=== PATIENT | female | born 1955 | race Caucasian/White ===

== ENCOUNTER 2021-12-29 05:04 | Observation (INO) ==
--- NOTE | 2021-12-24 08:25 | Anesthesiology Consultation ---
Date of Service December 24, 2021 Assessment & Plan (1) Encounter for pre-operative examination: - Abnormal preop testing: Hypokalemia (K 3.0) on preop labs and CXR with a few bibasilar linear densities (per report: these are nonspecific but favor subsegmental atelectasis. A pneumonia could also have a similar appearance in the appropriate clinical setting). Message sent to PCP. Awaiting surgeon-ordered PCP preop evaluation and response to hypokalemia/abnormal CXR (Dr. Cortez/Maxine; scheduled 12/25). - COVID screening: Per assessment on 12/24: No known COVID-19 positive contacts or current COVID-19 related symptoms (previous N/V resolved with decreasing opioid/pain medication). Travel screen negative x 2 weeks. Surgeon arranging preop COVID testing (scheduled 12/27; CARINA Burns). Awaiting results. Chart Review Chart Review: Patient seen in Pre Admission Testing Teaching & Discussion Pre-Anesthesia Teaching/Discussion Notes: Instructed NPO after midnight before surgery,except medications with 15 cc of water. Medication instructions provided according to the PAT guidelines. History Surgery Operation Date: 12/29/21 07:30 Proposed Procedures p Left Total Shoulder Arthroplasty Reverse - Rajinder Socrates Tapia MD Height/Weight Height: 5 ft Weight: 66.7 kg Allergies Allergy/AdvReac Type Severity Reaction Status Date / Time amoxicillin [From Augmentin] AdvReac N/V Verified 12/23/21 15:51 clavulanic acid AdvReac N/V Verified 12/23/21 15:51 [From Augmentin] Medications Home Medications Medication Instructions Recorded Confirmed Last Taken amlodipine 10 mg tablet 10 mg PO QAM 06/03/18 12/24/21 06/02/18 hydrochlorothiazide 25 mg tablet 25 mg PO QAM 06/03/18 12/24/21 06/02/18 oxycodone 5 mg tablet 5 - 10 mg PO Q6H PRN pain #20 tabs 12/20/21 12/24/21 Unknown acetaminophen 500 mg tablet 500 mg PO Q6H PRN Pain 12/24/21 12/24/21 Unknown (Tylenol Extra Strength) aspirin 81 mg tablet,delayed 81 mg PO QAM 12/24/21 12/24/21 Unknown release (Catie Low Dose Aspirin) rosuvastatin 5 mg tablet 5 mg PO QAM 12/24/21 12/24/21 Unknown Past Medical History Medical History Dyslipidemia Hearing deficit Rt DONAHUE Hypertension Urinary leakage Exercise / Class Metabolic Activity III < 4 Walking/Shop/Light housework Past Family History Family History Other No family history of adverse response to anesthesia Past Surgical History Surgical History History of benign breast biopsy History of colonoscopy History of oral surgery History of rectal fissure s/p surgical repair Past Anesthesia History No Hx of Anesthesia Complications and No Family Hx of Anesthesia Complications History of PONV No Hx of PONV and Hx of Motion Sickness Social History Smoking Status: Never smoker Do You Dip or Chew Tobacco: No Smoking End Date: Quit 47 years ago Hx Alcohol Use: No Hx Substance Use: No substance use type: does not use Review of Systems Significant left shoulder pain. Patient denies chest pain, shortness of breath, fever, chills, cough, wheezing, palpitations. Physical Exam Vital Signs VITALS BP 132/73 P 89 TEMP 98.7 SP02 93-94%RA RESP 18 PHYSICAL Full cervical extension range of motion. Full TMJ range of motion. TMD 3 finger breaths Mallampati Score 4 Dentition: partial upper Lungs: clear throughout to auscultation Cardiac: regular rate and rhythm, no murmurs noted Spine: normal Carotid arteries: negative bruit Extremities: no edema Lab Results Anesthesia Preop Results Results Anesthesia Widget: WBC 11.71 K/ul (4.8-10.8) H 12/24/21 Hgb 12.2 g/dl (12.0-16.0) 12/24/21 Hct 35.8 % (34.1-44.9) 12/24/21 Plt 263 K/uL (130-400) 12/24/21 Na 137 mmol/L (136-145) 12/24/21 K 3.0 mmol/L (3.5-5.1) L 12/24/21 Cl 94 mmol/L (98-107) L 12/24/21 CO2 33 mmol/L (21-32) H 12/24/21 BUN 17 mg/dl (6-23) 12/24/21 Creat 0.82 mg/dl (0.6-1.2) 12/24/21 Glucose Level 191 mg/dl (70-99(Fasting)) H 12/24/21 PT 10.6 Seconds (9.0-12.0) 12/24/21 PTT 24.5 Seconds (21.0-31.0) 12/24/21 INR 1.0 (0.9-1.1) 12/24/21 Blood Type A Positive 12/24/21 Antibody Screen NEGATIVE 12/24/21 Testing Laboratory Results Elevated WBC and hypokalemia noted on preop labs > testing forwarded to PCP. Electrocardiogram Date: 12/24/21 Findings: + NSR @ (79) Chest X-Ray Date: 12/24/21 Redemonstration of the displaced and comminuted left humeral head/neck fracture. A few bibasilar linear densities. These are nonspecific but favor subsegmental atelectasis. A pneumonia could also have a similar appearance in the appropriate clinical setting.
--- NOTE | 2021-12-24 08:40 | PAT Medication Instructions ---
Medication Instructions Date of Service December 24, 2021 Home Medications Medication Instructions Recorded oxycodone 5 mg tablet 5 - 10 mg PO Q6H PRN pain #20 tabs 12/20/21 amlodipine 10 mg tablet 10 mg PO DAILY hydrochlorothiazide 25 mg tablet 25 mg PO DAILY oxycodone 5 mg tablet 5 - 10 mg PO Q6H PRN pain acetaminophen 500 mg tablet (Tylenol Extra Strength) 500 mg PO Q6H PRN Pain aspirin 81 mg tablet,delayed release (Catie Low Dose Aspirin) 81 mg PO QAM rosuvastatin 5 mg tablet 5 mg PO QAM ASK your prescriber and surgeon aspirin 81 mg tablet,delayed release (Catie Low Dose Aspirin) 81 mg PO QAM DO NOT take the morning of surgery hydrochlorothiazide 25 mg tablet 25 mg PO DAILY Take morning of surgery With a small sip of water, OTHERWISE NOTHING TO EAT OR DRINK AFTER MIDNIGHT: amlodipine 10 mg tablet 10 mg PO DAILY oxycodone 5 mg tablet 5 - 10 mg PO Q6H PRN pain (if needed) acetaminophen 500 mg tablet (Tylenol Extra Strength) 500 mg PO Q6H PRN Pain (if needed) rosuvastatin 5 mg tablet 5 mg PO QAM Other Notes If you have any questions please call us at [phone] or [phone] or [phone] or [phone]
[2021-12-29] MEDS ORDERED: LR 60ML/HR IV SCH (06:00)
[2021-12-29] MEDS ORDERED: ceFAZolin 1000MG 1,000 MG/7.5 ML SYR IV SCH (06:00)
[2021-12-29] MEDS ORDERED: Scopolamine 1 MG TDSY TD SCH (06:00)
[2021-12-29] MEDS ORDERED: CeleBREX 200 MG CAP PO SCH (06:00)
[2021-12-29] MEDS ORDERED: TRANEXAMIC ACID 1,000 MG **IV Pre-op IV SCH (06:00)
[2021-12-29] MEDS ORDERED: GABAPENTIN 300 MG CAP PO SCH (06:00)
[2021-12-29] MEDS ORDERED: METOCLOPRAMIDE HCL 10 MG TABLET PO SCH (06:00)
[2021-12-29] MEDS ORDERED: LR 15ML/HR IV SCH (06:00)
[2021-12-29] MEDS ORDERED: ROPIVACAINE 0.5% HCL/PF 150 MG, BUPIVACAINE 0.75% MPF 20 ML, EPINEPHrine 0.15 MG, Ketor... INFIL SCH (06:00)
[2021-12-29] MEDS ORDERED: BUPIVACAINE 0.5 % 5 MG/1 ML PF 10ML VIAL ONE (06:25)
[2021-12-29] MEDS ORDERED: LIDOCAINE 1%/EPINEPHRINE 1:100,000 50 ML VIAL ONE (06:42)
[2021-12-29] MEDS ORDERED: BUPIVACAINE 0.5 % 5 MG/1 ML MPF 30ML VIAL ONE (06:42)
[2021-12-29] MEDS ORDERED: DEXAMETHASONE SOD INJ 4 MG/ML VIAL ONE (06:55)
[2021-12-29] MEDS ORDERED: ROCURONIUM BROMIDE 10 MG/ML 5 ML VIAL IV ONE (06:55)
[2021-12-29] MEDS ORDERED: MIDAZOLAM HCL 1 MG/ML 2ML VIAL ONE (06:55)
[2021-12-29] MEDS ORDERED: PROPOFOL IV EMULSION 10 MG/ML 20 ML VIAL IV ONE (06:55)
[2021-12-29] MEDS ORDERED: LIDOCAINE 2% 20 MG/ML 5 ML SYR IV ONE (06:55)
[2021-12-29] MEDS ORDERED: ONDANSETRON INJ 2 MG/ML 2 ML VIAL ONE (06:55)
[2021-12-29] MEDS ORDERED: fentaNYL citrate 100 MCG/2 ML VIAL ONE (06:56)
[2021-12-29] MEDS ORDERED: fentaNYL citrate 100 MCG/2 ML VIAL IV PRN (06:59)
[2021-12-29] MEDS ORDERED: KETOROLAC 30 MG/ML VIAL IV PRN (06:59)
[2021-12-29] MEDS ORDERED: PROMETHAZINE HCL 6.25 MG in SODIUM CHLORIDE 0.9% 50 ML IV PRN (06:59)
[2021-12-29] MEDS ORDERED: ATROPINE SULFATE 0.1 MG/ML 10ML SYR IV PRN (06:59)
[2021-12-29] MEDS ORDERED: ONDANSETRON INJ 2 MG/ML 2 ML VIAL IV PRN ×2 (06:59→12:46)
--- NOTE | 2021-12-29 07:08 | History & Physical Bridge Note ---
Date of Service December 29, 2021 History & Physical Bridge Note I have examined the patient, reviewed the History & Physical and in the interval since the performance of the History & Physical I have noted the following changes of clinical significance: no changes noted Patient is aware of the risks, is asymptomatic, and tested negative for COVID- 19.
[2021-12-29] MEDS ORDERED: LARYING-O-JET KIT (LTA) ONE (08:24)
[2021-12-29] MEDS ORDERED: NEOSTIGMINE METHYLSULFATE 1 MG/ML 10ML VIAL ONE (09:15)
[2021-12-29] MEDS ORDERED: GLYCOPYRROLATE 0.2 MG/ML VIAL ONE (09:15)
[2021-12-29] MEDS ORDERED: PHENYLEPHRINE 100MCG/ML 5ML SYR ONE (09:37)
[2021-12-29] MEDS ORDERED: TRANEXAMIC ACID / 0.7% NACL 1,000 MG/100 ML BAG IV STA (09:44)
--- NOTE | 2021-12-29 11:16 | Post Operative Brief Note ---
Immediate Post Op Note v1 Date of Surgery December 29, 2021 Pre & Post Diagnosis Operation Date: 12/29/21 07:30 Pre-Op Diagnosis: 4-Part Displaced Left Proximal Humerus Fracture Post-Op Diagnosis: 4-Part Displaced Left Proximal Humerus Fracture I identified the patient and participated in the time-out.: Yes Procedure Operation Date: 12/29/21 07:30 Actual Procedures p Left Total Shoulder Arthroplasty Reverse(Left) - Rajinder Tapia MD Surgeon Rajinder Tapia MD Senior Packaging Engineer Jona Moran MD & C MIN Valdovinos Estimated Blood Loss 75 Findings Consistent with Post-Op Diagnosis Fluids 1800 cc Specimens Left humeral Head Anesthesia Type General Regional Complications none
--- NOTE | 2021-12-29 11:19 | Operative Report ---
Post Operative Report Pre & Post Diagnosis Operation Date: 12/29/21 07:30 Pre-Op Diagnosis: 4-Part Displaced Left Proximal Humerus Fracture Post-Op Diagnosis: 4-Part Displaced Left Proximal Humerus Fracture I identified the patient and participated in the time-out.: Yes Procedure Operation Date: 12/29/21 07:30 Actual Procedures p Left Reverse Total Shoulder Arthroplasty (Left) - Rajinder Tapia MD Surgeon Rajinder Tapia MD Waiter Jona Moran MD & Cosme Valdovinos PA-C Estimated Blood Loss 75 Findings See Below Comminuted displaced 4-part proximal humerus fracture. Humeral Head was in multiple pieces. Shoulder ROM Pre-op: FF 90 deg; Abd 90 deg with significant crepitus; ER 0 deg; IR 0 deg Shoulder ROM Post-op: FF 150 deg; Abd 150 deg; ER 40 deg; IR 20 deg Fluids 1800 cc Specimens Left humeral head Anesthesia Type General Regional Complications none Indications Patient is a 66-year-old female who fell sustaining a comminuted 4-part proximal left humeral fracture, with pain and decreased mobility. I recommended that she undergo a left shoulder Reverse TSA. The patient understands the risks of the operation including bleeding, infection, re-operation, damage to nerves and arteries, continued shoulder pain, shoulder stiffness, infection, and/or loosening of the components which may require additional surgery. The patient also understands the risks of heart attack, stroke, pulmonary embolus, and . The patient wished to proceed and the consent form was signed. Description of Procedure IMPLANTS: Arthrex 1) Humeral Stem 5 Univers Reverse Stem, with size 36 Left Offset Suture Cup at 135. 2) Humeral Liner 36, + 3 mm 33. 3) Glenoid Modular Baseplate 24 mm + 2Laterlized & Central Screw 10 x 20 mm. 4) Glenosphere 33 mm + 4 Lateralized / 24. 5) Glenoid Locking screw 5.5 x 20 & 28 mm. PROCEDURE: The patient was taken to the Operating Room and placed in the beach-chair position after administration of an interscalene block and general anesthesia. 1 g of intravenous Ancef was administered. TXA was given pre-op and intra-op. The left shoulder was then prepped and draped in the standard sterile fashion. Sequential compression devices were placed in the legs. The patient was identified and a multidisciplinary time-out identified the left shoulder as the correct shoulder and operative limb. First, the coracoid, acromion, clavicle, and planned deltopectoral incision were marked and then anesthetized with a 50:50 mixture of 1% lidocaine with epinephrine and 0.5% Marcaine. Sharp dissection was carried down to the deltopectoral interval. The cephalic vein was identified and protected laterally as was the deltoid. The deltopectoral interval was dissected to expose the clavipectoral fascia which was then incised. Blunt dissect was used to separate the deltoid from the humeral head fragments and rotator cuff. A self-retaining shoulder retractor was placed beneath the conjoined tendon and deltoid muscle, exposing the subscapularis tendon. The superior 1cm of the Pec major was released. The biceps tendon was identified in its groove and had degeneration it was tenodesed to the Pec major tendon with #1 Vicryl. The biceps tendon was unroofed from its groove, and the rotator interval was split to the base of the coracoid and the biceps was released from the glenoid. The subscapularis was freed of any adhesions and tagged. The fracture was used to gain access to the joint. The lesser tuberosity and 2 parts of the greater Tuberosity (Supraspinatus and Infraspinatus & Teres Minor) were tagged with a #1 Vicryl. The hematoma was removed with irrigation, suction, finger dissection, and rongeur. The humeral head fragments were removed. Our attention was drawn to the glenoid. The humerus was retracted and displaced posteriorly. The labrum was circumferentially removed as was the anterior capsule, which was carefully dissected free from the subscapularis tendon. The glenoid was exposed with 90 degree retractor superiorly, Ricardo retractor anteriorly, and Batman/Derra retractor posteriorly. The glenoid was prepped with curettes to remove any remaining cartilage. Using the specific VIP patient specific glenoid aiming guide for a 24 mm baseplate was used to place the 2.8 mm guide wire. The glenoid surface was prepped for the baseplate with the glenoid reamers (peripheral and inferior offset after the baseplate was placed). The mod ular central screw hole was prepped with cannulated 10 mm drill, then tapped to depth of 20 mm. The baseplate with central screw was screwed into place flush to the glenoid. The inferior screw hole was drilled first followed by the superior screw and a locking screws were placed. The 33 mm trial glenosphere looked excellent and the 33 mm glenosphere implant was inserted onto the baseplate and locked into place in the standard fashion. Next, the humeral shaft was dislocated by adducting, extending, and externally rotation. Due to the fracture the capsule was not attached to the humeral shaft. The IM reamer was placed by hand up to a # 6. Due to the comminution the resection guide and reamer were not needed. The humeral broached to a 5 in the humeral shaft until excellent fit. The Tuberosities had sutures placed through them and the shaft for later repair. The 5 stem was impacted into place with excellent purchase was achieved. The humeral trial liner 36, +3 mm was placed. The shoulder was reduced with excellent fit and good stability of 1+ translation anteriorly and posteriorly. The shoulder ROM showed improved motion noted above. The definitive humeral liner was then placed. The tuberosities were repaired by tying the sutures to the shaft, implant, cerclage suture, and sutures to each other. The posterior fragment with the Infraspinatus and Teres Minor was repaired first with good alignment of the fragment to the shaft. Next the Lateral fragment with the Supraspinatus was repaired to the shaft and prostheses. Some bone graft from the humeral head was filled in between the these 2 fragments. The lesser tuberosity was then repaired to the shaft and prostheses. The rotator interval was closed with #2 FiberWire. The prostheses was no longer visible. The ROM and stability was unchanged. The pulsatile lavage was used to copiously irrigate the wound throughout the case. The deltopectoral interval was re-approximated with #1-Vicryl, the s ubcutaneous tissue was closed with 3-0 Vicryl, and the skin was closed with ZipLine and Shield. The wounds were dressed with sterile gauze, and Tegaderm. The patient was then transferred to the PACU in stable condition after application of an abduction sling. POST-OP: The patient will be admitted for observation overnight. Patient will be seen by PT/OT prior to discharge. Pain medicine will be used as needed. The patient was placed in an abduction sling. I attest to the content of the Intraoperative Record and any orders documented therein. Any exceptions are noted below.
--- NOTE | 2021-12-29 11:52 | Operative Report ---
Post Operative Report Pre & Post Diagnosis Operation Date: 12/29/21 07:30 Pre-Op Diagnosis: Other Displaced Fracture of Upper End of Left [place] Post-Op Diagnosis: Other Displaced Fracture of Upper End of Left Jc I identified the patient and participated in the time-out.: Yes Procedure Operation Date: 12/29/21 07:30 Actual Procedures p Left Total Shoulder Arthroplasty Reverse(Left) - Rajinder Tapia MD Surgeon Rajinder. Willie HOLMAN Security Orderly N MD Luisa & C MIN Valdovinos Estimated Blood Loss 75 Findings Consistent with Post-Op Diagnosis Consistent with post op diagnosis. Specimens No specimens Description of Procedure I participated in prepping dressing and assisted Dr. Tapia during the procedure. Please see Dr. Tapia note. I attest to the content of the Intraoperative Record and any orders documented therein. Any exceptions are noted below. Supervising Physician Co-Signing Physician Notes Dr. Tapia
--- NOTE | 2021-12-29 12:06 | Operative Report ---
Post Operative Report Pre & Post Diagnosis Operation Date: 12/29/21 07:30 Pre-Op Diagnosis: Other Displaced Fracture of Upper End of Left [place] Post-Op Diagnosis: Other Displaced Fracture of Upper End of Left Jc I identified the patient and participated in the time-out.: Yes Procedure Operation Date: 12/29/21 07:30 Actual Procedures p Left Total Shoulder Arthroplasty Reverse(Left) - Rajinder Socrates Tapia MD Surgeon D Willie HOLMAN Administrative Asst Jona Moran MD & C MIN Valdovinos Estimated Blood Loss 75 Findings Consistent with Post-Op Diagnosis see operative report Specimens see operative report Drains none Complications none Disposition Accompanied Patient To Recovery: Yes Indications This 66-year-old female presented to the office with complaints of a left proximal humeral fracture. Because of the complexity of the fracture, reverse total shoulder arthroplasty was recommended. Patient elected to proceed. Preoperative imaging was obtained. Description of Procedure Patient was administered a regional block and then taken to the operating room where she was given general anesthesia. She was prepped and draped in the usual sterile fashion. Please see Dr. Tapia's operative report for specifics of the procedure. I was present for the entire case from initial patient positioning through final wound closure. Assistance was provided in tissue retraction, hemostasis, trial implant placement, final implant placement, and final wound closure. Patient was taken to the recovery room in satisfactory condition. I attest to the content of the Intraoperative Record and any orders documented therein. Any exceptions are noted below.
--- NOTE | 2021-12-29 12:35 | Anesthesiology Progress Note ---
Date of Service December 29, 2021 Anesthesia Post Procedure Vital Signs Vital Signs: Temp Pulse Pulse Resp BP Pulse Ox O2 Del Method 12/29/21 12:25 36.3 C L 82 17 126/80 93 Room Air 12/29/21 12:15 69 15 130/71 97 Oxymask 12/29/21 12:05 69 16 124/70 96 Oxymask 12/29/21 11:55 73 15 129/75 95 Oxymask 12/29/21 11:48 36.0 C L 86 14 116/75 96 Oxymask 12/29/21 05:44 36.8 C 82 20 151/80 H 94 Room Air O2 Flow Rate 12/29/21 12:25 12/29/21 12:15 4 12/29/21 12:05 4 12/29/21 11:55 6 12/29/21 11:48 8 12/29/21 05:44 Pain Intensity Left Upper Arm: Pain Intensity: 8 Transfer of Care Handoff Completed per policy Notes Mental Status: alert / awake / arousable Patient Amnestic to Procedure: Yes Nausea / Vomiting: adequately controlled Pain: adequately controlled Airway Patency, RR, SpO2: stable & adequate BP & HR: stable & adequate Hydration State: stable & adequate Anesthetic Complications: no major complications apparent
[2021-12-29] MEDS ORDERED: METOCLOPRAMIDE HCL INJ 5 MG/ML 2 ML VIAL IV PRN (12:46)
[2021-12-29] MEDS ORDERED: MAGNESIUM HYDROXIDE SUSP 30 ML UDC PO PRN (12:46)
[2021-12-29] MEDS ORDERED: SODIUM CHLORIDE 0.9% 1000ML 1,000 ML IV SCH (12:46)
[2021-12-29] MEDS ORDERED: ALUMINUM/MAGNESIUM SUSP 30 ML UDC PO PRN (12:46)
[2021-12-29] MEDS ORDERED: diphenhydrAMINE 50 MG/ML VIAL IV PRN (12:46)
[2021-12-29] MEDS ORDERED: bisacodyL 10 MG SUPP PR PRN (12:46)
[2021-12-29] MEDS ORDERED: NALOXONE HCL 0.4 MG/1 ML VIAL/CARP IV PRN (12:46)
[2021-12-29] MEDS ORDERED: oxyCODONE HCL IR 5 MG TAB (IMMEDIATE RELEASE) PO PRN (12:46)
[2021-12-29] MEDS ORDERED: HYDROmorphone INJ 0.5 MG/0.5 ML SYR IV PRN (12:46)
--- NOTE | 2021-12-29 12:50 | XRay Report ---
XR shoulder LT min 2V routine CLINICAL HISTORY: Post shoulder surgery COMPARISON STUDY: Left humerus 12/20/2021. FINDINGS: Status post reverse left total shoulder arthroplasty. The hardware appears intact. No dislo cation. Small residual nondisplaced fracture of the left humeral neck is noted. IMPRESSION: Status post reverse left total shoulder arthroplasty. There is a small residual nondispl aced fracture at the left humeral neck. ACT 112: Negative or not required by law. Electronically signed by: Jemal Loya M.D. 12/29/2021 12:48 PM
[2021-12-29] MEDS: ACETAMINOPHEN 500 MG TAB PO SCH ×2 (13:42→21:15)
[2021-12-29] MEDS: KETOROLAC TROMETHAMINE 15 MG/ML VIAL IV SCH ×2 (13:43→17:06)
[2021-12-29] MEDS: ceFAZolin 1000MG 1,000 MG/7.5 ML SYR IV SCH (17:04)
[2021-12-29] MEDS: ASCORBIC ACID 500 MG TAB PO SCH (17:05)
[2021-12-29] MEDS: Scopolamine CHECK PATCH PLACEMENT SCH (17:05)
[2021-12-29] MEDS: FERROUS GLUCONATE 324 MG TAB PO SCH (17:05)
[2021-12-29] MEDS: ASPIRIN 81 MG ECTAB PO SCH (20:38)
[2021-12-29] MEDS: DOCUSATE SODIUM 100 MG CAP PO SCH (20:38)
[2021-12-29] MEDS ORDERED: SENNA 8.6 MG TAB PO SCH (21:00)
[2021-12-30] MEDS: Scopolamine CHECK PATCH PLACEMENT SCH ×3 (00:03→15:21)
[2021-12-30] MEDS: KETOROLAC TROMETHAMINE 15 MG/ML VIAL IV SCH ×2 (00:19→05:30)
[2021-12-30] MEDS: ceFAZolin 1000MG 1,000 MG/7.5 ML SYR IV SCH (00:19)
[2021-12-30] MEDS: ACETAMINOPHEN 500 MG TAB PO SCH ×2 (05:29→14:33)
[2021-12-30 06:25] LABS: Basophils # (auto) 0.03 K/uL (0-0.2); Basophils % (auto) 0.2 %; Eosinophils # (auto) 0.03 K/uL (0-0.50); Eosinophils % (auto) 0.2 %; Hematocrit (blood only) 30.6 % (34.1-44.9); Hemoglobin 10.2 g/dl (12.0-16.0); Immature Granulocytes # (auto) 0.08 K/uL (0.00-0.02); Immature Granulocytes % (auto) 0.6 %; Lymphocytes # (auto) 2.83 K/uL (1.2-3.4); Lymphocytes % (auto) 21.7 %; Mean Corpuscular Hemoglobin 29.1 pg (25.0-34.0); Mean Corpuscular Hgb Conc 33.3 g/dL (32.0-36.0); Mean Corpuscular Volume 87.4 fL (80.0-100.0); Mean Platelet Volume 8.4 fL (9.4-12.3); Monocytes # (auto) 0.99 K/uL (0.24-0.82); Monocytes % (auto) 7.6 %; Neutrophils # (auto) 9.09 K/uL (1.4-6.5); Neutrophils % (auto) 69.7 %; Platelet Count 243 K/uL (130-400); RDW Standard Deviation 40.4 fL (36.4-46.3); White Blood Count 13.05 K/ul (4.8-10.8)
[2021-12-30 06:56] LABS: BUN Creatinine Ratio 28.4 (10-20); Calcium 8.5 mg/dl (8.5-10.1); Creatinine Clr Calc Pharmacy 62.9 ml/min; Est GFR (African American) 97.8 ml/min; Est GFR (Non-African American) 84.4 ml/min
[2021-12-30] MEDS: FERROUS GLUCONATE 324 MG TAB PO SCH ×2 (07:40→16:14)
[2021-12-30] MEDS: ASCORBIC ACID 500 MG TAB PO SCH ×2 (07:41→16:13)
[2021-12-30] MEDS: ASPIRIN 81 MG ECTAB PO SCH (07:41)
[2021-12-30] MEDS: DOCUSATE SODIUM 100 MG CAP PO SCH (07:41)
[2021-12-30] MEDS ORDERED: dexAMETHasone 10 MG in SYRINGE 0 ML IV SCH (08:00)
[2021-12-30] MEDS ORDERED: ROSUVASTATIN CALCIUM 5 MG TAB PO SCH (09:00)
[2021-12-30] MEDS ORDERED: hydroCHLOROthiazide 25 MG TAB PO SCH (09:00)
[2021-12-30] MEDS ORDERED: amLODIPine BESYLATE 5 MG TAB PO SCH (09:00)
[2021-12-30] MEDS ORDERED: MULTIVITAMIN TAB PO SCH (09:00)
--- NOTE | 2021-12-30 10:11 | Orthopedic Progress Note ---
Date of Service December 30, 2021 Assessment & Plan (1) S/p reverse total shoulder arthroplasty: Plan: POD1 s/p left reverse total shoulder arthroplasty with Dr Willie PANDYA, keep shoulder immobilizer in place - may remove for hygiene purposes and for PT PT/OT Diet - regular Frequently ice DVT prophylaxis: TEDS x 3 weeks, foot pumps while in hospital Pain control: Tylenol 1000mg q 8hrs, oxycodone 5-10mg q4-6 hrs for moderate pain Stool softener while on narcotic pain medication to prevent constipation Zofran for nausea Vitamin C and Iron supplementation BID x 2 weeks Dressing: changed dressing to Mepilex dressing that patient can leave in-tact until f/u. Patient may shower with dressing in tact but cannot submerge dressing/incision. If edges of dressing start to peel off home health may reinforce as needed. Discharge home with home health x 2 weeks, then will transition to outpatient physical therapy Follow up as scheduled with Leda Killian PA-C (Day) with [facility] in 2 weeks - 01/12 @ 11:00 Patient deemed medically and orthopedically stable for discharge once she has been seen by PT/OT Admission and Anticipated Discharge Date Admission Date: December 29, 2021 Subjective Pt was seen and examined bedside. POD #1 s/p left reverse total shoulder arthroplasty. Pt was admitted last night for observation. No major events over night. Vitals are stable. Labs unremarkable. X-rays show normal post operative changed. Pt reports they are doing well and pain is controlled. They are tolerating PO intake and voiding adequate amounts. Working well with PT/OT. Pt denies F/C, N/V/D, SOB, CP. Pt deemed medically stable and ready for discharge. Physical Exam Physical Exam: General: Pt laying in hospital bed AA&O, in NAD, calm and cooperative during exam Upper Extremity: Dressing in tact and not saturated. Incisions clean, dry and with minimal drainage and no surrounding erythema, warmth or purulent drainage. Pt has full ROM of wrist and all 5 digits. Pt is able to make a fist. Some distal extremity numbness, block is still in effect. Upper extremity noted to have good color and temperature with no signs of vascular or lymphatic insufficiency. Results & Data ([facility]) Vital Signs (Past 12 Hours) Vital Signs Temp Pulse Resp BP Pulse Ox O2 Del Method 12/30/21 07:34 36.8 C 80 16 155/89 H 95 Room Air 12/30/21 04:14 36.7 C 78 16 114/69 92 Room Air 12/29/21 22:05 36.7 C 103 H 16 145/81 H 91 Room Air Laboratory Results 12/30/21 12/30/21 Range/Units 06:06 06:06 WBC 13.05 H (4.8-10.8) K/ul RBC 3.50 L (3.93-5.22) M/uL Hgb 10.2 L (12.0-16.0) g/dl Hct 30.6 L (34.1-44.9) % MCV 87.4 (80.0-100.0) fL MCH 29.1 (25.0-34.0) pg MCHC 33.3 (32.0-36.0) g/dL RDW Std Deviation 40.4 (36.4-46.3) fL RDW Coeff of Hussain 13.0 (11.5-14.5) % Plt Count 243 (130-400) K/uL MPV 8.4 L (9.4-12.3) fL Immature Gran % (Auto) 0.6 % Neut % (Auto) 69.7 % Lymph % (Auto) 21.7 % Roberts % (Auto) 7.6 % Eos % (Auto) 0.2 % Baso % (Auto) 0.2 % Neut # (Auto) 9.09 H (1.4-6.5) K/uL Lymph # (Auto) 2.83 (1.2-3.4) K/uL Roberts # (Auto) 0.99 H (0.24-0.82) K/uL Eos # (Auto) 0.03 (0-0.50) K/uL Baso # (Auto) 0.03 (0-0.2) K/uL Immature Gran # (Auto) 0.08 H (0.00-0.02) K/uL Sodium 139 (136-145) mmol/L Potassium 4.0 (3.5-5.1) mmol/L Chloride 106 (98-107) mmol/L Carbon Dioxide 25 (21-32) mmol/L Anion Gap 8 (3-11) BUN 21 (6-23) mg/dl Creatinine 0.74 (0.6-1.2) mg/dl Est Cr Clr Drug Dosing 62.9 ml/min Est GFR ( Amer) 97.8 ml/min Est GFR (Non-Af Amer) 84.4 ml/min BUN/Creatinine Ratio 28.4 H (10-20) Glucose 128 H (70-99(Fasting)) mg/dl Calcium 8.5 (8.5-10.1) mg/dl
--- NOTE | 2021-12-30 11:03 | Discharge Summary ---
Date of Service December 30, 2021 Principal Diagnosis Left proximal humerus fracture s/p left reverse total shoulder arthroplasty Discharge Exam General: Pt laying in hospital bed AA&O, in NAD, calm and cooperative during exam Upper Extremity: Dressing in tact and not saturated. Incisions clean, dry and with minimal drainage and no surrounding erythema, warmth or purulent drainage. Pt has full ROM of wrist and all 5 digits. Pt is able to make a fist. Some distal extremity numbness, block is still in effect. Upper extremity noted to have good color and temperature with no signs of vascular or lymphatic insufficiency. Discharge Data Allergies Allergy/AdvReac Type Severity Reaction Status Date / Time amoxicillin [From Augmentin] AdvReac N/V Verified 12/29/21 05:35 clavulanic acid AdvReac N/V Verified 12/29/21 05:35 [From Augmentin] Procedures Performed Operation Date: 12/29/21 07:30 Actual Procedures p Left Total Shoulder Arthroplasty Reverse(Left) - Rajinder Tapia MD Ordered Studies 12/29/21 05:00 US - OR guided needle placemen Routine Hospital Course (1) S/p reverse total shoulder arthroplasty: POD1 s/p left reverse total shoulder arthroplasty with Dr Willie PANDYA, keep shoulder immobilizer in place - may remove for hygiene purposes and for PT PT/OT Diet - regular Frequently ice DVT prophylaxis: TEDS x 3 weeks, foot pumps while in hospital Pain control: Tylenol 1000mg q 8hrs, oxycodone 5-10mg q4-6 hrs for moderate pain Stool softener while on narcotic pain medication to prevent constipation Zofran for nausea Vitamin C and Iron supplementation BID x 2 weeks Dressing: changed dressing to Mepilex dressing that patient can leave in-tact until f/u. Patient may shower with dressing in tact but cannot submerge dressing/incision. If edges of dressing start to peel off home health may reinforce as needed. Discharge home with home health x 2 weeks, then will transition to outpatient physical therapy Follow up as scheduled with Leda Killian PA-C (Day) with [facility] in 2 weeks - 01/12 @ 11:00 Patient deemed medically and orthopedically stable for discharge once she has been seen by PT/OT Total Time Total Time Spent Total Time Spent (In Minutes): 45 minutes Discharge Plan Discharge Items Patient Disposition: Home - Home Health Services Reason For Visit: Other Displaced Fracture of Upper End of Left [place] Discharge Diagnosis: Left proximal humerus fracture, s/p left reverse total shoulder arthroplasty Activity: Per Instructions section Lifting: None Bathing: Keep incision dry and May shower/bathe in 3 days Weightbearing Comment: Non-weight bearing on left upper extremity Non-emergency contact: Surgeon Call non-emergency contact if: you have any medication questions, your temperature is above 101.5, your wound has increased redness, your wound has increased drainage and your wound pain has increased Follow-up/Referrals: Denice Cortez DO [Primary Care Provider] - Leda Killian PA-C [Physician Data Management] - 01/12/22 10:30 am Diet: Regular Addtl Attending Provider Instructions: TOTAL SHOULDER DISCHARGE INSTRUCTIONS: Non-weight bearing operative extremity, keep shoulder immobilizer in place - may remove for hygiene purposes and for PT Diet - regular Frequently ice, at least 20 minutes 4 times a day DVT prophylaxis: Aspirin 81mg TWICE A DAY for 6 weeks, TEDS x 3 weeks Pain control: Tylenol 1000mg q 8hrs, oxycodone 5-10mg q4-6 hrs for moderate pain Stool softener while on narcotic pain medication to prevent constipation - You have been prescribed Senna You have been prescribed Zofran for nausea, please take as prescribed To promote healing, please take an [id number]-[id number] Vitamin C supplement 500mg twice a day with meals x 2 weeks and an prev-alm-zqxgste Iron supplement 325 mg twice a day with meals x 2 weeks Dressing: You may shower on Post op Day 3. Leave Mepilex dressing in tact until follow up appt in 2 weeks. Your dressing is water-resistant, meaning you can shower with it on as long as it is in-tact. Letting some running water run over top of it from the shower is okay. You cannot submerge your incision in water. No baths, hot tubs or swimming pools. Keep dressing clean and dry. If your dressing starts to peel off or gets moisture under it after 7 days, home health nurse may reinforce as needed. You will be set up for Home health for 2 weeks, then will transition to outpatient physical therapy Follow up as scheduled with Leda Killian (MIN [place] with [facility] in 2 weeks - APPT: 01/12 @ 11:00 Please call our office sooner @ [phone] if you have any questions or concerns Pending Studies at Discharge: No Stand-Alone Forms: My [facility], Smoking Cessation Medications and DC Order Prescriptions: New ferrous gluconate 324 mg (38 mg iron) Tablet 324 mg PO BIDM 14 Days Qty: 28 0RF aspirin 81 mg Tablet,Delayed Release (Dr/Ec) 81 mg PO BID 42 Days Qty: 84 0RF sennosides [Senokot] 8.6 mg Tablet 17.2 mg PO HS Qty: 20 0RF ascorbic acid (vitamin C) [Vitamin C] 500 mg Tablet 500 mg PO BIDM 14 Days Qty: 28 0RF ondansetron HCl 4 mg tablet 4 mg PO Q8H PRN (Reason: nausea and vomiting) 5 Days Qty: 15 0RF Rx Instructions: Take one pill 1 hour prior to taking narcotic pain medication to prevent nausea. You may take additional pills every 8 hours as needed if nausea persists. oxycodone 5 mg tablet 5 - 10 mg PO Q6H PRN (Reason: pain) Qty: 24 0RF Rx Instructions: 1 tablet for pain 1-5 2 tablets for pain 6-10 sennosides [senna] 8.6 mg tablet 8.6 mg PO HS PRN (Reason: constipation) Qty: 10 0RF ondansetron HCl 4 mg tablet 4 mg PO Q8H 5 Days Qty: 15 0RF Rx Instructions: Please take 1 tab 1 hour prior to taking narcotic pain medication. You may take 1 additional tab every 8 hours as needed as nausea persists. Continued amlodipine 10 mg Tablet 10 mg PO QAM hydrochlorothiazide 25 mg Tablet 25 mg PO QAM rosuvastatin 5 mg Tablet 5 mg PO QAM acetaminophen [Tylenol Extra Strength] 500 mg Tablet 500 mg PO Q6H PRN (Reason: Pain) oxycodone 5 mg tablet 5 - 10 mg PO Q6H PRN (Reason: pain) Qty: 20 0RF Rx Instructions: Initial Treatment Discontinued aspirin [Catie Low Dose Aspirin] 81 mg Tablet,Delayed Release (Dr/Ec) 81 mg PO QAM Discharge Orders: Discharge Order (Routine); Ordered 12/30/21 Ordered By: Ldea Killian Admission Data Admit Date/Time: 12/29/21 12:02 Attending Provider: Rajinder Tapia Admit Provider: Rajinder Tapia Primary Care Provider: Denice Cortez
== END 2021-12-30 17:26 | disposition home health service (06) ==
LOC: ASU 05:04 → 3E 05:04
DX: S42.292A Other displaced fracture of upper end of left humerus, initial encounter for closed fracture; W01.0XXA Fall on same level from slipping, tripping and stumbling without subsequent striking against object, initial encounter; M65.9 Synovitis and tenosynovitis, unspecified; Z88.1 Allergy status to other antibiotic agents; Z79.899 Other long term (current) drug therapy; Z79.82 Long term (current) use of aspirin; X58.XXXD Exposure to other specified factors, subsequent encounter